=== PATIENT | female | born 1965 | race African-American/Black ===

== ENCOUNTER → 2017-03-11 | Day surgery (SDC) | payer BC ==
--- NOTE | 2017-03-14 09:27 | PATH ---
Surgical Pathology Report Patient Name: CLOVIS ENNIS [facility]. Rec. #: [id number] /Age/Gender: 1965 (Age: 51) / F Account: [id number] Location: [facility] Taken: 03/11/2017 Received: 03/11/2017 Reported: 03/14/2017 Physicians: Nikia Patel M.D. Specimen(s) Received BREAST CORE BIOPSY RIGHT 10:00 Clinical History Suspicious Rule out recurrence Final Diagnosis RIGHT BREAST, 10:00, ULTRASOUND GUIDED NEEDLE CORE BIOPSY: BENIGN ADIPOSE TISSUE WITH AREAS OF FAT NECROSIS, AND BENIGN FIBROUS TISSUE. NO CARCINOMA IDENTIFIED. NO BREAST EPITHELIAL ELEMENTS IDENTIFIED. Comment: Recommend correlation with clinical and radiologic findings and follow up as clinically indicated. See also [id number]. Electronically Signed Altaf Martinez M.D. Gross Description Received in formalin labeled "right breast 10:00," is a 1.6 x 1.3 x 0.3 cm aggregate of multiple perez-yellow, irregular to cylindrical portions of fibroadipose tissue. The formalin is filtered and the specimen is entirely submitted in one cassette. Time to formalin fixation: 2 minutes Total formalin fixation time: Approximately 7 hours /03/11/2017
== END | disposition home or self-care (01) ==
LOC: FRADUS-SUR 13:54
PROVIDERS: ATTEND Surgery Surgical Oncology
PROC: 0HBT3ZX Excision of Right Breast, Percutaneous Approach, Diagnostic (ICD-10-PCS; principal; 2017-03-11)
DX: N63 Unspecified lump in breast (principal); Z85.3 Personal history of malignant neoplasm of breast; N64.1 Fat necrosis of breast
CPT/HCPCS: 19083; 76830-TC; 76856-TC; 87899; 88305-TC; A4648

== ENCOUNTER 2017-04-14 06:24 | Day surgery (SDC) | payer BC ==
--- NOTE | 2017-04-04 14:29 | HP ---
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 There was also a 7mm focus of cancer as well as cancer in upper outer quadrant and lower outer quadrants. She had 3 +/ 22 nodes and underwent chemotherapy. She is currently on tamoxifen. She underwent left mammogram and US which showed stable densities. On exam she was found to have a new palpable density on lateral right implant Right us core bx 02/2017 showed areas of fat necrosis. History Source: Patient Limitations to Obtaining History: No Limitations - Past Medical History Cardiovascular: Yes: HTN ...LMP: 01/01/13 Additional Past Medical History: Right breast cancer - Past Surgical History Past Surgical History: Yes: Mastectomy (Right modified radical mastectomy 2012 for invasive ductal ca chemotherapy 3+22 nodes.), Tonsillectomy (and adenoids) Additional Past Surgical History: deviated septum - Smoking History Smoking history: Never smoked Aproximately how many cigarettes per day: 0 - Alcohol/Substance Use Hx Alcohol Use: No Home Medications - Allergies Allergies/Adverse Reactions: Allergies Allergy/AdvReac Type Severity Reaction Status Date / Time hydrocodone bitartrate Allergy Severe Rash Verified 06/20/14 08:13 [From Vicodin] Shrimp Allergy Severe ANAPHYLAXIS Uncoded 06/19/14 17:33 - Home Medications Home Medications: Ambulatory Orders Multivitamin [Multivitamins] 1 each PO DAILY 11/22/12 Vitamin B Complex [B Complex] 1 each PO DAILY 11/22/12 Metoprolol Tartrate [Lopressor] 25 mg PO DAILY 01/16/13 Family Disease History - Family Disease History Family Disease History: CA: Mother (breast ca 70), Brother (prostate ca 58) Physical Examination Constitutional: Yes: Well Nourished Breast(s): Yes: Other ( Total mastectomy and implant reconstruction on right well healed incisions breast are a bit ptotic . New mass right lateral aspect which is slightly suspicious no adenopathy left breast negative) Problem List - Problems (1) Mass of right chest wall Code(s): R22.2 - LOCALIZED SWELLING, MASS AND LUMP, TRUNK Assessment/Plan Right chest wall excisional biopsy
[2017-04-13 11:22] VITALS: BMI 29.3
[2017-04-14] MEDS ORDERED: LIDOCAINE HCL/PF 2% SDV 5ML VIAL ONE (07:15)
[2017-04-14] MEDS ORDERED: ROCURONIUM BROMIDE 50 MG/5 ML VIAL ONE (07:15)
[2017-04-14] MEDS ORDERED: PROPOFOL 20 ML ONE (07:15)
[2017-04-14] MEDS ORDERED: MIDAZOLAM HCL 2 MG/2 ML SINGLE DOSE VIAL ONE (07:16)
[2017-04-14] MEDS ORDERED: EPINEPHrine/PF 1 MG/1 ML (1:1,000) AMPULE ONE (07:19)
[2017-04-14] MEDS ORDERED: LIDOCAINE HCL 1%, 10 MG/ML (20ML VIAL) ONE (07:20)
[2017-04-14] MEDS ORDERED: oxyCODONE HCL 5 MG TABLET PO PRN (08:37)
[2017-04-14] MEDS ORDERED: LACTATED RINGERS SOLUTION 1,000 ML IV SCH (08:45)
[2017-04-14] MEDS ORDERED: GLYCOPYRROLATE 0.2 MG/1 ML VIAL ONE ×2 (09:02→09:03)
[2017-04-14] MEDS ORDERED: ONDANSETRON 4 MG/2 ML VIAL ONE ×2 (09:02)
[2017-04-14] MEDS ORDERED: NEOSTIGMINE METHYLSULFATE 0.5 MG/ML - 10 ML MDV ONE (09:02)
[2017-04-14] MEDS ORDERED: PROMETHAZINE HCL 25 MG/1 ML VIAL ONE (10:17)
[2017-04-14] MEDS ORDERED: traMADol HCL 50 MG TABLET ONE (12:33)
[2017-04-14 16:06] VITALS: BP 124/72; PULSE 84; TEMP 98.2
--- NOTE | 2017-04-15 11:21 | OP ---
DATE OF OPERATION: 04/14/2017 SURGEON: Rodney Wilson MD [employer] SURGEON: Lance Terry PA-C PREOPERATIVE DIAGNOSIS: 1. Right acquired chest wall deformity status post right mastectomy, now with recurrence. 2. Left breast asymmetry of reconstructed chest wall with symptomatic macromastia. POSTOPERATIVE DIAGNOSIS: 1. Right acquired chest wall deformity status post right mastectomy, now with recurrence. 2. Left breast asymmetry of reconstructed chest wall with symptomatic macromastia. OPERATIVE PROCEDURE: 1. Right breast reconstruction with other technique. 2. Left breast reduction mammoplasty. OPERATIVE INDICATIONS: The patient is a woman who was brought to the operating room by Dr. Rodney Gutierrez. The patient had previous mastectomy with palpable mass in the area below the scar from the mastectomy incision. This was previously biopsied to be fat necrosis, and Dr. Gutierrez was removing the mass in a combined procedure. His part of the operation will be dictated under a separate cover. The mass proved to be a recurrent breast cancer, and the procedure was amended to correct the significant deformity caused by the wide resection of recurrence. OPERATIVE PROCEDURE IN DETAIL: Patient was taken to the operating room, and after the induction of general anesthesia in the supine position, both arms were extended and padded, Venodyne boots were placed, and the entire chest wall was prepped with ChloraPrep solution. At this point, after placement of sterile drapes and time-out, 1% local lidocaine anesthesia was injected into the right breast mastectomy scar, and then, the left breast in a perez pattern reduction, which was marked in the standing position. The patient understood the possibility of of the procedure if there was an indicated reason. Once the patient was attended to, Dr. Gutierrez began his portion of the operation. He then resected the mass, which turned out to be a recurrent breast carcinoma. This required an extended wide excision of skin and subcutaneous tissue, which will be dictated under a separate cover by Dr. Gutierrez. Upon completion of the wide excision of the right breast, I began my portion of the operation while waiting for the pathology. The left breast reduction was incised around a No. 42 nipple areolar cutter, and an inferior pedicle technique was used to incise the breast tissue down through skin to the subcutaneous tissue, fashioning an inferior pedicle. At this point, blocks of tissue were removed from the medial, superior, and lateral portions of the left breast in order to match the opposite reconstructed right breast. Approximately 300 g of tissue were removed and sent for pathologic diagnosis. A large amount of cystic material in the breast tissue itself was seen and removed at the time. Copious irrigation of the wounds and flaps were carried out. The tissues were hemostatically achieved through the electrocautery, and at this point, a 1-inch Marya drain was brought out through a separate stab, lateral portion of the wound of the left breast. The skin and subcutaneous tissue were advanced and closed over the pedicle in the usual fashion with 2-0 Vicryl sutures in interrupted fashion, and then 3-0 PDS in a deep dermal fashion. The nipple areolar complex was brought into its new anatomic position and sutured using a 3-0 PDS and 4-0 V-Loc suture in a running fashion around the areolar complex down vertically for the circumareolar and vertical scar as well as the inframammary scar. All wounds showed good viability, and the nipple areolar complex showed good viability at the end of the procedure. Attention was then turned back to the right breast with separate instruments from the cancer side. An advancement flap reconstruction with tissue rearrangement was carried out for breast reconstruction with other technique. The incision was made into the deep tissue of the breast itself and mobilized in order to close the significant defect. A large portion of the capsule and overlying AlloDerm material was removed during the resection in radical fashion. The implant was left in place for possible radiation therapy in the future. Wounds were copiously irrigated, and advancement flaps were advanced and closed in interrupted fashion using 2-0 Vicryl sutures in its new position, advancing the deep tissues upon themselves. A second layer of deep dermal sutures were placed using 3-0 Monocryl suture, and then, the skin was advanced and closed after excision with 4-0 Biosyn suture. The patient tolerated the procedure well. She was awakened, extubated, and transferred to the recovery room with a Surgi-Bra. RODNEY WILSON M.D. BARTOLOME/[id number]
--- NOTE | 2017-04-15 11:35 | OP ---
DATE OF OPERATION: 04/14/2017 PREOPERATIVE DIAGNOSIS: Right breast mass with history of right breast cancer status post mastectomy. POSTOPERATIVE DIAGNOSIS: Recurrent right breast cancer. PROCEDURE: A right breast excisional biopsy of a palpable mass and then wide chest wall excision for recurrence with a left breast reduction mastopexy by Plastic Surgery. PRIMARY SURGEON: Rodney Ta MD BUSINESS COORDINATOR: JENNIFER Esteban PRIMARY SURGEON FOR THE PLASTIC SURGERY REDUCTION MASTOPEXY ON THE LEFT: Rodney Wilson MD with his assistant federal public defender, JENNIFER Yang COMPLICATIONS: None. INDICATIONS: Briefly, the patient is a 51-year-old, postmenopausal female from [facility], who has a family history with her mother who had breast cancer at age 70. The patient was diagnosed with a multifocal right breast cancer and underwent a modified radical mastectomy back in January 2013, for a multifocal, poorly-differentiated, invasive duct cancer measuring 2.3 cm which was ER/WA positive and HER2/ty negative with 3 out of 22 positive nodes and lymphovascular invasion. She underwent chemotherapy, but could not finish the Taxotere and then was placed on tamoxifen. She had been doing well until she noted a palpable density just over the implant towards the upper outer aspect of the right breast. This was felt to be suspicious and ultrasound showed an irregular density and she underwent an ultrasound-guided core biopsy on March 11, 2017, but just came back as fat necrosis. This still appeared very irregular and we recommended an excisional biopsy and the patient wanted removal of her right implant and a reduction mastopexy on the left side at the same sitting. So, we performed the procedure with Plastic Surgery. The patient was brought in through Same-Day Surgery on April 14, 2017. In the holding area, site verification was made and informed consent was obtained. She was marked preoperatively by the plastic surgeons as well. DESCRIPTION OF PROCEDURE: She was brought into the operating room and laid on the OR table in the supine position. Venodynes were placed on the lower extremities. She received 2 grams of Ancef prior to incision. Both breasts were sterilely prepped and draped in the usual fashion, and the anterior abdomen was also sterilely prepped and draped for possible liposuction and fat grafting. Once she was properly anesthetized, the right breast excisional biopsy was first performed. Incision was made using the prior horizontal incision from her previous mastectomy. Dissection was undertaken around the palpable density which was easily dissected away from the surrounding tissue with good gross margins. It did look somewhat suspicious on excision, and we sent it for frozen section. It was positive for recurrent cancer. At this point, decision was made not to remove the implant on the right since we knew she was going to need radiation and also medical oncology followup. Decision was made just to do a chest wall excision on the right side, and we went back and excised more skin all the way down to the chest wall, removing part of the capsule on the posterior aspect. This specimen was oriented with a long lateral, short superior suture and sent to Pathology in formalin as right chest wall excision. A separate posterior margin was taken of the capsule and sent separately as posterior margin with a suture marking the biopsy cavity site. Hemostasis was achieved, and at this point, it was decided just to close the skin over the implant using interrupted 3-0 deep dermal Vicryl suture and a running 4-0 subcuticular Biosyn suture. Mastisol and Steri-Strips were applied over the wound. She did have the reduction mastopexy on the left side at the same sitting using separate instruments. This was done by Dr. Wilson. The patient had the laryngeal mask airway tube removed at the end of the case, was brought to the postanesthesia care unit postoperatively. We did speak to the patient postoperatively that this was a recurrent cancer. She understands the need for radiation therapy. We did place 4 small titanium clips on the edges of the excisional cavity to help for external beam radiation postoperatively. The patient will follow up in 1 week for a formal wound pathology check. All sponge and needle counts were correct at the end of the case, and estimated blood loss was minimal. RODNEY TA M.D. [id number]
--- NOTE | 2017-04-19 10:34 | PATH ---
Surgical Pathology Report Patient Name: CLOVIS ENNIS [facility]. Rec. #: [id number] /Age/Gender: 1965 (Age: 51) / F Account: [id number] Location: [facility] AM[facility] Taken: 04/14/2017 Received: 04/14/2017 Reported: 04/19/2017 Physicians: Odin Gutierrez M.D. Specimen(s) Received A: RIGHT BREAST EXCISIONAL BIOPSY (FS) B: RIGHT BREAST WIDE EXCISION C: RIGHT BREAST DEEP MARGIN D: LEFT BREAST TISSUE Clinical History History of R breast cancer with mastectomy in 2012 with CTX Now with palpable recurrent mass u/s core- fat necrosis Intraoperative Consult Diagnosis Right breast excisional biopsy, frozen section: Carcinoma present. Quoc Odom M.D. 04/14/17 Final Diagnosis A. BREAST, RIGHT, EXCISIONAL BIOPSY (FS): INVASIVE DUCTAL CARCINOMA, MICROPAPILLARY TYPE, POORLY DIFFERENTIATED (TUBULE SCORE: 3/3, NUCLEAR GRADE: 3/3, MITOTIC SCORE 2/3; TOTAL ELYSIA SCORE 8/9), CONSISTENT WITH RECURRENCE OF PRIOR KNOWN RIGHT BREAST CARCINOMA. (SEE NOTE) INVASIVE CARCINOMA MEASURES 1.1 CM IN GREATEST DIMENSION, MICROSCOPICALLY. CARCINOMA EXTENDS TO AN UNDESIGNATED INKED TISSUE MARGIN. (SEE SPECIMENS B&C FOR FINAL MARGINS). NO DEFINITIVE LYMPHOVASCULAR INVASION IS IDENTIFIED. PRIOR BIOPSY CHANGES ARE NOTED ADJACENT TO THE CARCINOMA. PATHOLOGIC STAGE (rpTNM): rpT1c pNx. SEE ALSO INVASIVE CARCINOMA CASE SUMMARY BELOW. Note: See prior surgical pathology report from 2012 ([id number]). B. BREAST, RIGHT, WIDE EXCISION: BENIGN FIBROADIPOSE TISSUE SHOWING DENSE FIBROSIS AND FOCI OF HISTIOCYTIC REACTION, CONSISTENT WITH PRIOR TREATED TUMOR BED TISSUE. NO CARCINOMA IS IDENTIFIED. SCANT BENIGN GLANDULAR BREAST PARENCHYMA IS PRESENT. SKIN WITH NO PATHOLOGIC FINDINGS. C. BREAST, RIGHT, DEEP MARGIN, EXCISION: FIBROUS CAPSULE. D. BREAST TISSUE, LEFT, EXCISION: BREAST TISSUE SHOWING ATYPICAL LOBULAR HYPERPLASIA (ALH) AND FIBROCYSTIC CHANGES INCLUDING CYSTIC APOCRINE METAPLASIA AND STROMAL FIBROSIS. (SEE NOTE) SKIN WITH NO PATHOLOGIC FINDINGS. Note: The foci of ALH are negative E-Cadherin (performed at [facility]), which supports lobular phenotype. Comments Breast Invasive Carcinoma: Surgical Pathology Cancer Case Summary Based on AJCC/UICC TNM, 7th edition Procedure _X_ Excision without image-guided localization Specimen Laterality _X_ Right Tumor Size: Size of Largest Invasive Carcinoma: 1.1 cm Tumor Focality _X_ Single focus of invasive carcinoma Macroscopic and Microscopic Extent of Tumor Skin _X_ Invasive carcinoma does not invade into the dermis or epidermis Nipple _X_ Not applicable Ductal Carcinoma In Situ (DCIS) _X_ No DCIS is present Histologic Type of Invasive Carcinoma : Histologic Grade: ([place] Histologic Score) Tubular Differentiation _X_ Score 3 Nuclear Pleomorphism _X_ Score 3 Mitotic Rate _X_ Score 2 Overall Grade _X_ Grade 3: scores of 8 or 9 (poorly differentiated) Margins _X_ Margins uninvolved by invasive carcinoma Distance from closest margin: cannot be determined Invasive carcinoma extends to undesignated margins in excisional biopsy (A). Final margins in wide excision (B) are negative for carcinoma. Lymph-Vascular Invasion _X_ Indeterminate Pathologic Staging (pTNM) Primary Tumor (Invasive Carcinoma): rpT1c Regional Lymph Nodes (pN): pNx Biomarker Studies Results of ER and CT studies performed on this specimen (block A2) at [facility] are as follows: ER (clone [id number] mouse monoclonal antibody by [employer]) : >90 % nuclear staining with strong intensity (Positive). CT (clone16 mouse monoclonal antibody by [employer]): >90 % nuclear staining with moderate to strong intensity (Positive). Results of Her2 & Ki67 studies will be reported separately in an addendum. Positive and negative controls (internal if applicable) show appropriate results. Formalin fixation time is within current ASCO/CAP recommendations for ER, CT and Her2 testing. Time to fixation (cold ischemic time) is not given but is presumed to be within 1 hour. Electronically Signed Alexandria Odom M.D. Addendum Reported: 04/19/2017 Addendum Diagnosis Results of Her2 (IHC) & Ki-67 studies performed on block A2 at [place], [place] ([id number]) are as follows: Her2 IHC (EP3 from [employer], formerly known as [id number], using [employer] Polymer Refine detection kit): 1+ (Negative). Ki-67: ~80% (High proliferative index). Positive and negative controls (internal if applicable) show appropriate results. Alexandria Odom M.D. Gross Description A. Received fresh labeled "right breast excisional biopsy," is a 2.7 x 1.5 x 0.9 cm irregular, unoriented portion of fibroadipose tissue. Sectioning reveals a 1.1 x 0.9 x 0.5 cm perez, firm mass focally abutting a radial margin. The specimen is inked green and sectioned. A insurance claims representative portion is submitted for frozen section. The specimen is entirely submitted in 3 cassettes as follows: 1-frozen section residue; 3-4-ihhrojoth of specimen. B. Received in formalin labeled "right breast wide excision," is a 5.7 x 2.8 x 1.5 cm irregular portion of fibroadipose tissue with a short suture marking the superior aspect and a long suture marking the lateral aspect of the specimen, per the surgeon. There is no needle localization wire present. The anterior surface displays a 4.3 x 1.5 cm perez, elliptical portion of skin with black suture material. The specimen is inked as follows: Superior blue; inferior green; lateral red; medial yellow; deep black. The specimen is serially sectioned from lateral to medial. Sectioning reveals unremarkable fibroadipose tissue. No lesions are identified. The specimen is entirely and sequentially submitted in 10 cassettes with the lateral margin cassette 1 and the medial margin in cassette 10. Time to formalin fixation; Not given (presumed within 1 hour) Total formalin fixation time: Approximately 33 hours C. Received in formalin labeled "right breast deep margin," is a 2.7 x 2.0 x 0.3 cm irregular portion of fibrotic tissue with a suture marking the biopsy cavity side, per the surgeon. The new margin displays a fibrous capsule. The new margin is inked black and the specimen is serially sectioned. The specimen is entirely submitted in 3 cassettes. D. Received in formalin labeled "left breast tissue 272 g," is a 13.5 x 10.5 x 5.8 cm aggregate of multiple irregular, unoriented portions of fibroadipose tissue and perez, unremarkable skin. Sectioning reveals abundant perez, white, fibrous tissue. [facility] [place] Puller sections are submitted in 6 cassettes. 04/14/2017 [facility]2017
== END 2017-04-14 15:30 | disposition home or self-care (01) ==
LOC: FASU 06:24
PROVIDERS: ATTEND Surgery Surgical Oncology
PROC: 0HRT07Z Replacement of Right Breast with Autologous Tissue Substitute, Open Approach (ICD-10-PCS; 2017-04-14)
PROC: 0HBU0ZZ Excision of Left Breast, Open Approach (ICD-10-PCS; 2017-04-14)
PROC: 0HBT0ZX Excision of Right Breast, Open Approach, Diagnostic (ICD-10-PCS; principal; 2017-04-14 08:09)
PROC: 0HBT0ZZ Excision of Right Breast, Open Approach (ICD-10-PCS; 2017-04-14 08:09)
DX: C50.411 Malignant neoplasm of upper-outer quadrant of right female breast (principal); C50.811 Malignant neoplasm of overlapping sites of right female breast; I10 Essential (primary) hypertension; Z90.11 Acquired absence of right breast and nipple; Z80.3 Family history of malignant neoplasm of breast; M95.4 Acquired deformity of chest and rib; N65.1 Disproportion of reconstructed breast; N62 Hypertrophy of breast
CPT/HCPCS: 88307-TC; 88331-TC; 88342-TC; 94760

== ENCOUNTER 2021-09-26 10:14 | Emergency (ER) | payer BC ==
[2021-09-26 10:36] VITALS: BP 123/78; PULSE 85; TEMP 98.8; BMI 29.7
[2021-09-28 17:08] LABS: SARS-CoV-2 NAA Not Detected (Not Detected)
== END 2021-09-26 11:00 | disposition home or self-care (01) ==
LOC: FER 10:14
DX: R05.1 Acute cough (principal); Z20.822 Contact with and (suspected) exposure to COVID-19
CPT/HCPCS: 99283-25; C9803; U0003; U0005